=== PATIENT | female | born 1955 | race Caucasian/White ===

== ENCOUNTER 2017-04-26 07:13 | Outpatient (CLI) | payer BC ==
[~2017-04-26] VITALS: Ht 170.2 cm; Wt 114.5 kg
--- NOTE | ~2017-04-26 | HEMODYNAMI ---
PATIENT:ALICE DUNLAP MEDICAL RECORD: [id number] : 51 LOCATION:[facility] ADMISSION DATE: 04/26/17 Generatedon:04/26/201710:13 Patient name: ALICE DUNLAP Patient #: [id number] SSN: D OB: 1955 Date of study: 04/26/2017 Page: Of Hemodynamic Procedure Report Patient Data Patient Demographics Procedure consent was obtained First Name: ALICE Gender: Female Last Name: FABI : 1955 Patient #: [id number] Age: 61 year(s) Race: Unknown Additional ID: [id number] Contact details Address: [address] [place] [address] ROAD State: [place] City: [facility] [place], [place] Zip code: [address] Past Medical History Allergies: No known allergies Admission Admission Data Admission Date: 04/26/2017 Admission Time: 7:13 Height (in.): 5.7 BSA: 0.37 (m2) Height (cm.): 14.48 BMI: 5474.81 (kg/m2) Weight (lbs.): 253 Weight (kg.): 114.76 Lab Results Lab Result Date: 04/26/2017 Lab Result Time: 0:00 Biochemistry Name Units Result Min Max BUN mg/dl 16 --(---*)-- 7 18 Creatinine mg/dl 0.9 --(-*--)-- 0.6 1.3 CBC Name Units Result Min Max Hemoglobin g/dl 15.3 --(-*--)-- 13.5 17.5 Procedure Procedure Types Cath Procedure Diagnostic Procedure C [facility] w/Coronaries Miscellaneous Procedures Moderate Sedation up to 15 minutes Procedure Description Procedure Date Procedure Date: 04/26/2017 Procedure Start Time: 10:06 Procedure End Time: 10:13 Procedure Staff Name Function Nicolas Salazar MD Performing Physician Trey Hayden RT Monitor Hafsa Marquez RT Scrub Danie Grey RN Nurse Procedure Data Cath Procedure Fluoroscopy Diagnostic fluoroscopy Total fluoroscopy Time: 0.8 time: 0.8 min min Diagnostic fluoroscopy Total fluoroscopy dose: 337 dose: 337 mGy mGy Contrast Material Contrast Material Type Amount (ml) Isovue 300 32 Entry Location Entry Primary Successful Side Size Upsize Upsize Entry Closure Rodriguez ccessful Closure Location (Fr) 1 (Fr) 2 (Fr) Remarks Device Remarks Radial Right 6 Fr Mechanical artery Short Compression Estimated blood loss: 10 ml Diagnostic catheters Device Type Used For End Catheter Placement DIAGNOSTIC Dixmont 110cm 5 Procedure Fr catheter ([id number]) Procedure Complications No complications Procedure Medications Medication Administration Route Dosage 0.9% NaCl I.V. 100 ml/hr Oxygen NC 2 l/min Lidocaine 2% added to field 20 Heparin Flush Bag added to field 2 bags (1000units/500ml NS) Fentanyl I.V. 50 mcg Versed I.V. 1 mg Fentanyl I.V. 50 mcg Versed I.V. 1 mg Radial Cocktail added to field 1 syringe (Verapomil 2mg/Nitro 400mcg/Heparin 1500units) Radial Cocktail I.A. 1 syringe (Verapomil 2mg/Nitro 400mcg/Heparin 1500units) Hemodynamics Rest BSA: 0.37 (m2) HGB: 15.3 (g/dl) O2 Consumption: Estimated: 34.63 (ml/min) O2 Con sumption indexed: Estimated:93.59 (ml/min/m) Heart Rate: 69 (bpm) Pressure Samples Time Site Value (mmHg) Purpose Heart Use Rate(bpm) 10:08 AO 122/75(96) Snapshot 89 Snapshots Pre Cath Intra NCS Post Cath Vital Signs Time Heart Resp SPO2 etCO2 NIBP (mmHg) Rhythm Pain Sedation Rate (ipm) (%) (mmHg) Status Level (bpm) 9:52:01 81 17 96 0 153/69(107) NSR 0 (11) 10(A) , No pain 9:56:54 69 18 98 23.4 158/77(133) NSR 0 (11) 10(A) , No pain 10:01:46 70 18 100 25.6 161/79(131) NSR 0 (11) 10(A) , No pain 10:06:43 84 18 99 21.8 168/75(130) NSR 0 (11) 9(A) , No pain 10:11:28 92 18 95 37.7 127/76(117) NSR 0 (11) 9(A) , No pain Medications Time Medication Route Dose Verified Delivered Reason Notes Effectiveness by by 9:41:48 0.9% NaCl I.V. 100ml/hr Nicolas Helton used for Marie Grey RN procedure 9:42:02 Oxygen NC 2 l/min Nicolas Helton Per Marie Grey RN physician 9:42:14 Lidocaine 2% added 20ml Nicolas Valenzuela for local to vial Marie Salazar MD anesthetic field 9:42:24 Heparin Flush added 2 bags Nicolas Valenzuela used for Bag to Marie Salazar MD procedure (1000units/500ml field NS) 10:03:56 Fentanyl I.V. 50 mcg Nicolas Helton for sedation Marie Grey RN 10:04:09 Versed I.V. 1 mg Nicolas Helton for sedation Marie Grey RN 10:05:45 Fentanyl I.V. 50 mcg Nicolas Helton for sedation Marie Grey RN 10:05:50 Versed I.V. 1 mg Nicolas Helton for sedation Marie Grey RN 10:07:04 Radial Cocktail added 1 Nicolas Helton used for (Verapomil to syringe Marie Grey RN procedure 2mg/Nitro field 400mcg/Heparin 1500units) 10:07:10 Radial Cocktail I.A. 1 Nicolas Valenzuela for (Verapomil syringe Marie Salazar MD vasodilation 2mg/Nitro 400mcg/Heparin 1500units) Procedure Log Time Note 8:51:03 Patient Height : 5.7 inches 8:51:09 Patient Weight : 253 lbs 8:51:39 Diagnostic Cath status Elective 8:51:40 Time tracking: Regular hours 8:51:44 Plan of Care:Hemodynamics will remain stable., Cardiac rhythm will remain stable., Comfort level will be maintained., Respiratory function will remain adequate., Patient/ family verbilizes understanding of procedure., Procedure tolerated without complication., Recovers from procedure without complications.. 8:52:00 H&P Date Dictated: 04/11/2017 Within 30 days and on chart., H&P Addendum completed by physician on day of procedure. (MUST COMPLETE FOR ALL OUTPATIENTS). 8:54:45 Lab Result : BUN 16 mg/dl 8:54:45 Lab Result : Hemoglobin 15.3 g/dl 8:54:45 Lab Result : Creatinine 0.9 mg/dl 8:54:49 Lab results completed and on chart. 9:29:44 Trey Hayden RT(R) sent for patient. Start room use. 9:41:48 0.9% NaCl 100ml/hr I.V. was administered by Danie Grey RN; used for procedure; 9:42:02 Oxygen 2 l/min NC was administered by Danie Grey RN; Per physician; 9:42:14 Lidocaine 2% 20ml vial added to field was administered by Nicolas Salazar MD; for local anesthetic; 9:42:24 Heparin Flush Bag (1000units/500ml NS) 2 bags added to field was administered by Nicolas Salazar MD; used for procedure; 9:43:46 Patient allergic to No known allergies 9:44:18 Patient received from Pre/Post Procedure Room to CCL 1 Alert and oriented. Tansferred to table in Supine position. 9:44:20 Warm blankets applied, and desi hugger turned on for patient comfort. 9:44:20 Correct patient and procedure confirmed by team. 9:44:22 Signed procedure consent form obtained from patient. 9:44:23 ECG and BP/O2 sat monitors applied to patient. 9:50:06 Vital chart was started 9:56:44 Baseline sample Acquired. 9:56:49 Rhythm: sinus rhythm 9:56:50 Pre-procedure instructions explained to patient. 9:56:50 Pre-op teaching completed and patient verbalized understanding. 9:56:52 Family in waiting room. 9:56:54 Patient NPO since Midnight. 9:56:55 Is the patient allergic to Iodine/contrast media? No. 9:56:57 Is patient on blood thinner?No 9:56:59 Patient diabetic? No. 9:57:01 Previous problem with sedation/anesthesia? No ? 9:57:02 Snore? Yes 9:57:03 Sleep apnea? No 9:57:04 Deviated septum? No 9:57:05 Opens mouth fully? Yes 9:57:06 Sticks out tongue? Yes 9:57:08 Airway obstruction? No ? 9:57:11 Dentures? No ? 9:57:14 Modified Devang's test Ulnar < 7 seconds 9:57:16 Patient pain scale 0/10 ?. 9:57:24 IV patent on arrival in left antecubital with 0.9% NaCl at O. 9:57:29 Right Radial & Right Groin area was prepped with chlora-prep and draped in sterile fashion 9:57:30 Alarms reviewed by R. N. 9:57:30 Sharps counted by scrub and verified by R.N. 9:57:32 Use device set Radial Dx 9:57:35 ACIST Syringe (78932) opened to sterile field. 9:57:36 Medline Cath Pack ([id number]) opened to sterile field. 9:57:36 Bag Decanter (2002S) opened to sterile field. 9:57:37 ACIST Hand Control (35791) opened to sterile field. 9:57:38 ACIST Manifold (44718) opened to sterile field. 9:57:39 Tegaderm 4 x 4 (1626W) opened to sterile field. 9:57:39 MBrace Wrist Support ([id number]) opened to sterile field. 9:57:43 SHEATH 6FR Slender ([id number]) opened to sterile field. 9:57:44 DIAGNOSTIC WIRE .035 260cm J wire (692137) opened to sterile field. 9:57:50 Physician arrived 9:57:51 --------ALL STOP TIME OUT------ 9:57:51 Final Timeout: patient, procedure, and site verified with staff and physician. All members of the team are in agreement. 9:57:53 Right Radial & Right Groin site verified by team. 9:57:55 Physical assessment completed. ASA score P 2 - A patient with mild systemic disease as per Nicolas Salazar MD. 9:57:57 Sedation plan: IV Moderate Sedation Medication:Versed, Fentanyl 10:03:08 Zero performed for pressure channel P1 10:03:56 Fentanyl 50 mcg I.V. was administered by Danie Grey RN; for sedation; 10:04:09 Versed 1 mg I.V. was administered by Danie Grey RN; for sedation; 10:05:45 Fentanyl 50 mcg I.V. was administered by Danie Grey RN; for sedation; 10:05:50 Versed 1 mg I.V. was administered by Danie Grey RN; for sedation; 10:06:09 Procedure started. 10:06:10 Full Disclosure recording started 10:06:15 Local anesthetic to right radial artery with Lidocaine 2% by Nicolas Salazar MD.INITIAL ACCESS ONLY 10:06:58 A 6 Fr Short sheath was inserted into the Right Radial artery 10:07:04 Radial Cocktail (Verapomil 2mg/Nitro 400mcg/Heparin 1500units) 1 syringe added to field was administered by Danie Grey RN; used for procedure; 10:07:10 Radial Cocktail (Verapomil 2mg/Nitro 400mcg/Heparin 1500units) 1 syringe I.A. was administered by Nicolas Salazar MD; for vasodilation; 10:07:25 A DIAGNOSTIC Dixmont 110cm 5 Fr catheter ([id number]) was advanced over the wire and used for Procedure. 10:08:36 LV angiography performed. 10:08:37 LV gram done using GARCIA 10:08:42 EF : 60 % 10:08:54 Injector settings: Ml/sec: 7, Volume: 15, 10:08:58 LCA angiography performed. 10:09:32 RCA angiography performed. 10:09:36 Catheter removed. 10:09:51 TR BAND Standard ([id number]) opened to sterile field. 10:10:02 Sheath removed intact; hemostasis achieved with Mechanical Compression to the Right Radial artery. 10:10:05 Procedure ended.(Physican Out) 10:10:57 Fluoroscopy time 00.80 minutes. 10:11:00 Fluoroscopy dose: 337 mGy 10:11:00 Flurop Dose total: 337 10:11:03 Contrast amount:Isovue 300 32ml. 10:11:05 Sharps counted by scrub and verified by R.N. 10:11:07 Insertion/operative site no bleeding no hematoma. 10:11:24 Post Procedure Pulses reassessed and unchanged 10:11:31 Post-procedure physical assessment completed. ASA score P 2 - A patient with mild systemic disease as per Nicolas Salazar MD. 10:11:34 Post procedure rhythm: unchanged. 10:11:37 Estimated blood loss: 10 ml 10:11:39 Post procedure instruction explained to patient.Patient verbalizes understanding. 10:11:39 Patient needs reinforcement of post procedure teaching. 10:11:59 Procedure and supply charges have been captured, reviewed, submitted and are correct. 10:12:02 Procedure Complication : No complications 10:13:04 TR band inflated with 13cc of air. 10:13:09 Vital chart was stopped 10:13:09 See physician's report for complete and final results. 10:13:11 Report given to Pre/Post Procedure Room. 10:13:15 Patient transfered to Pre/Post Procedure Room with Stretcher. 10:13:18 Procedure ended. 10:13:18 Full Disclosure recording stopped 10:13:27 End room use (Document Last) Device Usage Item Name Manufacture Quantity Catalog Hospital Part Current Minima l Lot# / Number Charge Number Stock Stock Serial# Code ACIST Acist 1 41984 [id number] 885926 334097 20 Syringe Medical (75879) Systems Inc Medline Cath Cardinal 1 [id number] 731241 53174 684653 5 Pack Health ([id number]) Bag Decanter Microtek 1 2002S 141935 98792 083668 5 (2001S) Medical Inc. ACIST Hand Acist 1 05785 043887 964791 262980 5 Control Medical (39569) Systems Inc ACIST Acist 1 18946 090803 143150 650411 5 Manifold Medical (15202) Systems Inc Tegaderm 4 x 3M 1 1626W 309314 179104 555586 5 4 (1626W) MBrace Wrist Advanced 1 140-0250-00 594042 66081 167917 5 Support Vascular ([id number]) Dynamics SHEATH 6FR Terumo 1 [id number] 401315 059466 180551 40 Slender ([id number]) DIAGNOSTIC St Arnaldo 1 810547 971889 376706 557860 30 WIRE .035 260cm J wire (180432) DIAGNOSTIC Terumo 1 40-2863 936388 960721 509280 5 Dixmont 110cm 5 Fr catheter (097599) TR BAND Terumo 1 [id number] 225923 371936 221095 40 Standard ([id number]) Signature Audit [place] Stage Time Signature Unsigned Intra-Procedure 04/26/2017 Trey Hayden 10:13:55 AM RT(R) Signatures Monitor : Trey Hayden RT Signature : Date : Time : [address] [place] [address]
[2017-04-26] MEDS ORDERED: VASOTEC5 MG PO (07:47)
[2017-04-26] MEDS ORDERED: LEVOXYL25 MCG (07:47)
[2017-04-26 07:53] VITALS: BP 118/67; Ht 170.2 cm; Wt 114.5 kg
[2017-04-26 08:13] LABS: BASOPHILS 0.5 % (0-2); EOSINOPHILS 1.2 % (0-7); HEMATOCRIT 45.1 % (36.0-48.0); HEMOGLOBIN 15.3 g/dL (12-16); IMMATURE GRANULOCYTES 0.2 % (0-5); LYMPHOCYTES 34.5 % (15-50); MCH 32.2 pg (26.0-34.0); MCHC 33.9 g/dL (31.0-37.0); MCV 94.9 fL (80.0-100.0); MEAN PLATELET VOLUME 10.3 fL (7.4-10.4); MONOCYTES 9.9 % (2-11); NEUTROPHILS 53.7 % (40-80); PLATELET COUNT 258 10x3/uL (130-400); RBC 4.75 10x6/uL (4.00-5.40); RDW 12.9 % (11.5-14.5); WBC 5.8 10x3/uL (4.8-10.8)
[2017-04-26 08:31] LABS: ANION GAP 10.1 mmol/L (8-16); CALCIUM 9.3 mg/dL (8.5-10.1); CARBON DIOXIDE 28.1 mmol/L (21.0-32.0); CREATININE - SERUM 0.9 mg/dL (0.6-1.3); POTASSIUM - SERUM 4.2 mmol/L (3.5-5.1)
--- NOTE | 2017-04-26 10:40 | NUR ---
ROOM AIR, NO RESP DISTRESS. RIGHT WRIST TR BAND CDI, NO BLEEDING OR HEMATOMA NOTED. NO C/O PAIN OR NAUSEA. VSS. FAMILY AT BEDSIDE, CALL LIGHT WITHIN REACH.
--- NOTE | 2017-04-26 11:15 | NUR ---
4CC OF AIR REMOVED FROM TR BAND, NO BLEEDING NOTED. VSS. NO C/O AT THIS TIME. WILL CONTINUE TO MONITOR.
--- NOTE | 2017-04-26 11:30 | NUR ---
4CC OF AIR REMOVED FROM TR BAND, NO BLEEDING NOTED. EATING SANDWICH TRAY AND SIPPING WATER WITH NO C/O NAUSEA. VSS. WILL CONTINUE TO MONITOR CLOSELY.
--- NOTE | 2017-04-26 12:03 | NUR ---
LEFT AC PIV D/C'D WITH CATHETER INTACT, BAND AID TO SITE. UP TO BEDSIDE TO GET DRESSED.
--- NOTE | 2017-04-26 12:10 | NUR ---
REMAINING AIR REMOVED FROM TR BAND, DRESSING PLACED TO SITE. DISCAHRGE INSTRUCTIONS GIVEN, VERBALIZED UNDERSTANDING.
--- NOTE | 2017-04-26 12:20 | NUR ---
TAKEN OUT VIA WHEELCHAIR BY CATH [employer]. LEFT FACILITY WITH FAMILY AND ALL PERSONAL BELONGINGS.
--- NOTE | 2017-05-08 15:46 | OP ---
PATIENT NAME: ALICE DUNLAP MEDICAL RECORD: [id number] :51 LOCATION:[facility] ADMISSION DATE: SURGEON: GUY JOHN MD DATE OF OPERATION: 04/26/2017 PROCEDURES: 1. Left heart catheterization. 2. Selective coronary angiography. 3. Left ventriculogram. PROCEDURE IN DETAIL: After informed consent was obtained and after detailed explanation of risks, benefits as well as alternative therapies, the patient elected to proceed with angiogram and heart catheterization. The right radial area was prepped and draped in normal sterile fashion. The right radial artery was cannulated via modified Seldinger technique with placement of 5-Armenian sheath. All catheters exchanged through this sheath. FINDINGS: Left ventriculogram was performed in standard 30-degree GARCIA view, reveals good cardiac wall motion throughout all segments. Overall ejection fraction estimated 60%. SELECTIVE CORONARY ANGIOGRAPHY: 1. Left main is with no significant angiographic disease. 2. Left anterior descending, left circumflex, right coronary are smooth-walled vessels with no angiographic evidence of coronary artery disease. OVERALL IMPRESSION: 1. No angiographic evidence of coronary artery disease. 2. Normal left heart pressures. 3. Normal left ventricular systolic function. Chest pain is noncardiac in etiology. No further cardiac workup needs to be ascertained. TRANSINT:[id number] Voice Confirmation ID: [id number] DOCUMENT ID: [id number] GUY JOHN MD at 1546 CC: [id number] DICTATION DATE: 04/26/17 1013 INSURANCE FOLLOW UP REPRESENTATIVE: 04/26/17 1234 DEP CLI 04/26/17 [place] [address] [place] [address]
== END 2017-04-26 12:20 | disposition home or self-care (01) ==
LOC: D.CATH 07:13
PROVIDERS: Internal Medicine Interventional Cardiology
DX: I20.9 Angina pectoris, unspecified (principal); I10 Essential (primary) hypertension; R07.9 Chest pain, unspecified; Z01.812 Encounter for preprocedural laboratory examination

== ENCOUNTER → 2018-03-11 18:08 | Outpatient (CLI) | payer BC ==
[2017-04-26 07:53] VITALS: BMI 39.5
[~2018-03-11 18:08] MED LIST: LEVOXYL25 MCG; VASOTEC5 MG PO
== END | disposition home or self-care (01) ==
LOC: D.MAMMO 09:00
DX: N64.4 Mastodynia (principal)

== ENCOUNTER → 2018-03-24 08:23 | Outpatient (CLI) | payer BC ==
[2017-04-26 07:53] VITALS: BMI 39.5
== END | disposition home or self-care (01) ==
LOC: D.US 03-21 14:00
DX: N63.24 Unspecified lump in the left breast, lower inner quadrant (principal)